=== PATIENT | male | born 1950 | race Caucasian/White ===

== ENCOUNTER → 2017-12-08 10:19 | Outpatient (CLI) | payer MEDICARE, MEDICAID, SELFPAY ==
[2017-12-08 12:21] LABS: OXY Internal Control LINE = VALID (VALID); Oxycodone Drug Screen Positive (<100 ng/mL)
[2017-12-08 12:32] LABS: Amphetamine Urine VISTA NEGATIVE (<1000 ng/mL); Barbiturate Urine VISTA NEGATIVE (< 200 ng/mL); Benzodiazepine Urine VISTA NEGATIVE (< 200 ng/mL); Cocaine Urine VISTA NEGATIVE (< 300 ng/mL); Ecstacy Urine VISTA NEGATIVE (< 500 ng/mL); Methadone Urine VISTA NEGATIVE (< 300 ng/mL); PCP Urine VISTA NEGATIVE (< 25 ng/mL); THC Urine VISTA POSITIVE (< 50 ng/mL); Vista UDS pH Range 5
== END ==
PROVIDERS: Family Provider Family Medicine; PCP Family Medicine; Visit Provider Family Medicine
DX: Z51.81 Encounter for therapeutic drug level monitoring (principal)
CPT/HCPCS: 80307; 80365; G0480

== ENCOUNTER → 2018-12-14 13:45 | Outpatient (CLI) | payer MEDICARE, MEDICAID, SELFPAY ==
[2018-05-08 13:51] VITALS: BMI 30.1
[2018-12-18 03:06] LABS: Lyme IgG P18 Ab Present (.); Lyme IgG P23 Ab Present (.); Lyme IgG P28 Ab Absent (.); Lyme IgG P30 Ab Absent (.); Lyme IgG P39 Ab Present (.); Lyme IgG P41 Ab Present (.); Lyme IgG P45 Ab Absent (.); Lyme IgG P58 Ab Present (.); Lyme IgG P66 Ab Present (.); Lyme IgG P93 Ab Absent (.); Lyme IgM P23 Ab Present (.); Lyme IgM P39 Ab Present (.); Lyme IgM P41 Ab Present (.)
[2018-12-18 13:08] LABS: Lyme IgG WB Interpretation Positive (.)
[2018-12-18 13:51] LABS: Lyme IgM WB Interpretation Positive (.)
== END ==
PROVIDERS: Family Provider Family Medicine; PCP Family Medicine; Visit Provider Family Medicine
DX: M25.50 Pain in unspecified joint (principal); G62.9 Polyneuropathy, unspecified
CPT/HCPCS: 36415; 86617

== ENCOUNTER → 2019-03-18 13:31 | Outpatient (CLI) | payer MEDICARE, MEDICAID, SELFPAY ==
[2018-05-08 13:51] VITALS: BMI 30.1
[2019-03-18 15:04] LABS: Absolute Lymphocyte Count 1.98 X10^3/uL (0.83-4.51); Absolute Neutrophil Count 9.8 X10^3/uL (2.0-7.7); Basophil# 0.04 X10^3/uL; Basophil% 0.3 % (0-1); Eosinophil# 0.18 X10^3/uL; Eosinophils% 1.4 % (0-5); Hematocrit 49.3 % (40-54); Hemoglobin 15.9 g/dL (13.0-16.5); Lymphocyte # 1.98 X10^3/ul (4.0); Lymphocyte % 15.1 % (19-41); Mean Corp Hgb Conc 32.3 g/dL (32-36); Mean Corpuscular Hgb 28.5 pg (27.0-32.0); Mean Corpuscular Volume 88.4 fL (80-94); Mean Platelet Vol. 11.9 fl (6.2-12.0); Monocyte# 1.06 X10^3/uL; Monocyte% 8.1 % (0-10); NRBC Flagged by Analyzer 0 % (0-5); Neutrophil # 9.79 X10^3/uL (2.7-7.7); Neutrophil % 74.6 % (47-70); Platelet Count 127 K/mm3 (150-450); RBC Distribution Width CV 13.8 % (11.6-14.6); RBC Distribution Width SD 44.8 fl (35.1-43.9); Red Blood Count 5.58 M/mm3 (4.6-6.2); White Blood Count 13.1 K/mm3 (4.4-11.0)
[2019-03-18 15:31] LABS: ALB/GLOB Ratio 0.9 RATIO (0.9-2.4); AST(SGOT) 16 U/L (15-37); Alanine Aminotransfer ALT/SGPT 22 U/L (16-61); Albumin, Serum 3.4 g/dL (3.2-5.0); Alkaline Phosphatase 109 U/L (45-117); Anion Gap 6 (5-15); BUN 13 mg/dL (7-18); BUN/Creat Ratio 13.6 RATIO (10-20); Calcium,Total 8.7 mg/dL (8.5-10.1); Chloride 105 mmol/L (98-107); Creatinine, Serum 0.96 mg/dL (0.70-1.30); EST Glomerular Filtration Rate 83 mL/min (>60); Est Glom Filt Rate - Afr Amer 101 mL/min (>60); Globulin 3.9 g/dL (2.2-4.2); Glucose 186 mg/dL (74-106); LDH 200 U/L (87-241); Potassium 4.1 mmol/L (3.5-5.1); Protein, Total 7.3 g/dL (6.4-8.2); Sodium Level 139 mmol/L (136-145)
[2019-03-20 20:07] LABS: Free Kappa Light Chains 37.5 mg/L (3.3-19.4); Free Lambda Light Chains 29.6 mg/L (5.7-26.3); Immunoglobulin A 384 mg/dL (61-437); Immunoglobulin G 1021 mg/dL (700-1600); Immunoglobulin M 81 mg/dL (20-172); PROEL- A/G Ratio 0.9 (0.7-1.7); PROEL- Albumin 3.1 g/dL (2.9-4.4); PROEL- Alpha-1 Globulin 0.3 g/dL (0.0-0.4); PROEL- Alpha-2 Globulin 0.9 g/dL (0.4-1.0); PROEL- Beta Globulin 1.2 g/dL (0.7-1.3); PROEL- Globulin, Total 3.4 g/dL (2.2-3.9); PROEL- TOTAL PROTEIN 6.5 g/dL (6.0-8.5)
== END ==
PROVIDERS: Family Provider Family Medicine; PCP Family Medicine; Visit Provider Internal Medicine Medical Oncology
DX: G89.4 Chronic pain syndrome (principal); D47.2 Monoclonal gammopathy; D72.9 Disorder of white blood cells, unspecified; Z51.81 Encounter for therapeutic drug level monitoring
CPT/HCPCS: 36415; 80053; 82784; 83615; 83883; 84165; 85025

== ENCOUNTER → 2019-09-23 15:30 | Outpatient (CLI) | payer MEDICARE, MEDICAID, SELFPAY ==
[2019-05-08 13:59] VITALS: BMI 29.4
[2019-09-23 17:41] LABS: Amphetamine Urine VISTA NEGATIVE (<1000 ng/mL); Barbiturate Urine VISTA NEGATIVE (< 200 ng/mL); Benzodiazepine Urine VISTA NEGATIVE (< 200 ng/mL); Cocaine Urine VISTA NEGATIVE (< 300 ng/mL); Ecstacy Urine VISTA NEGATIVE (< 500 ng/mL); Methadone Urine VISTA NEGATIVE (< 300 ng/mL); PCP Urine VISTA NEGATIVE (< 25 ng/mL); THC Urine VISTA POSITIVE (< 50 ng/mL); Vista UDS pH Range 6
[2019-09-23 17:56] LABS: OXY Internal Control LINE = VALID (VALID); Oxycodone Drug Screen Positive (<100 ng/mL)
== END ==
PROVIDERS: PCP Family Medicine; Visit Provider Family Medicine
DX: Z51.81 Encounter for therapeutic drug level monitoring (principal); F11.90 Opioid use, unspecified, uncomplicated
CPT/HCPCS: 80307; 80365; G0480

== ENCOUNTER → 2022-07-01 | Outpatient (CLI) | payer MEDICARE, MEDICAID, SELFPAY | END | disposition home or self-care (01) | LOC: BFHLAB 14:17 | PROVIDERS: PCP Family Medicine; Visit Provider Family Medicine | DX: E11.49 Type 2 diabetes mellitus with other diabetic neurological complication (principal) | CPT/HCPCS: 36415; 83036 ==

== ENCOUNTER → 2023-01-27 | Outpatient (CLI) | payer MEDICARE, MEDICAID, SELFPAY ==
[2023-01-27 12:42] LABS: Absolute Lymphocyte Count 2.97 X10^3/uL (0.83-4.51); Absolute Neutrophil Count 7.3 X10^3/uL (2.0-7.7); Basophil# 0.04 X10^3/uL; Basophil% 0.3 % (0-1); Eosinophil# 0.19 X10^3/uL; Eosinophils% 1.6 % (0-5); Hematocrit 50.1 % (40-54); Hemoglobin 15.9 g/dL (13.0-16.5); Lymphocyte # 2.97 X10^3/ul (0.83-4.51); Lymphocyte % 25.8 % (19-41); Mean Corp Hgb Conc 31.7 g/dL (32-36); Mean Corpuscular Hgb 29.1 pg (27.0-32.0); Mean Corpuscular Volume 91.6 fL (80-94); Monocyte# 0.97 X10^3/uL; Monocyte% 8.4 % (0-10); NRBC Flagged by Analyzer 0 % (0-5); Neutrophil # 7.31 X10^3/uL (2.7-7.7); Neutrophil % 63.6 % (47-70); Platelet Count 132 K/mm3 (150-450); RBC Distribution Width CV 13.9 % (11.6-14.6); RBC Distribution Width SD 46.9 fl (35.1-43.9); Red Blood Count 5.47 M/mm3 (4.6-6.2); White Blood Count 11.5 K/mm3 (4.4-11.0)
[2023-01-27 12:55] LABS: AST(SGOT) 12 U/L (15-37); Alanine Aminotransfer ALT/SGPT 21 U/L (16-61); Albumin, Serum 3.5 g/dL (3.2-5.0); Alkaline Phosphatase 65 U/L (45-117); Anion Gap 7 (5-15); BUN 20 mg/dL (7-18); BUN/Creat Ratio 24.2 RATIO (10-20); Calcium,Total 8.5 mg/dL (8.5-10.1); Chloride 108 mmol/L (98-107); Creatinine, Serum 0.82 mg/dL (0.70-1.30); EST Glomerular Filtration Rate 98 mL/min (>60); Est Glom Filt Rate - Afr Amer 118 mL/min (>60); Globulin 3.5 g/dL (2.2-4.2); Glucose 189 mg/dL (74-106); LDH 186 U/L (87-241); Potassium 4.2 mmol/L (3.5-5.1); Sodium Level 140 mmol/L (136-145)
[2023-01-27 12:58] LABS: Microalbumin,Random Urine 6.6 mg/L (NO RANGE EST.); Microalbumin:Creatinine Ratio 9.9 mg/g CRE (<30 mg/g CRE)
[2023-01-27 12:59] LABS: Amphetamine Urine VISTA NEGATIVE (<1000 ng/mL); Barbiturate Urine VISTA NEGATIVE (< 200 ng/mL); Benzodiazepine Urine VISTA NEGATIVE (< 200 ng/mL); Cocaine Urine VISTA NEGATIVE (< 300 ng/mL); Ecstacy Urine VISTA NEGATIVE (< 500 ng/mL); Methadone Urine VISTA NEGATIVE (< 300 ng/mL); PCP Urine VISTA NEGATIVE (< 25 ng/mL); THC Urine VISTA POSITIVE (< 50 ng/mL); Vista UDS pH Range 5
[2023-01-27 13:09] LABS: OXY Internal Control LINE = VALID (VALID); Oxycodone Drug Screen Positive (<100 ng/mL)
[2023-01-27 14:09] LABS: Hemoglobin A1c 6.3 % (3.8-5.6)
[2023-01-30 14:08] LABS: Albumin 3.7 g/dL (2.9-4.4); Alpha-1-Globulins 0.2 g/dL (0.0-0.4); Alpha-2-Globulins 0.8 g/dL (0.4-1.0); Free Kappa Light Chains 33.3 mg/L (3.3-19.4); Free Lambda Light Chains 28.5 mg/L (5.7-26.3); Gamma Globulin 0.8 g/dL (0.4-1.8); Immunoglobulin A 289 mg/dL (61-437); Immunoglobulin G 892 mg/dL (603-1613); Immunoglobulin M 65 mg/dL (15-143); PROEL- TOTAL PROTEIN 6.5 g/dL (6.0-8.5)
== END | disposition home or self-care (01) ==
LOC: BFHLAB 09:18
PROVIDERS: PCP Family Medicine; Visit Provider Family Medicine
DX: E11.49 Type 2 diabetes mellitus with other diabetic neurological complication (principal); I10 Essential (primary) hypertension; E78.5 Hyperlipidemia, unspecified; D47.2 Monoclonal gammopathy; Z79.899 Other long term (current) drug therapy
CPT/HCPCS: 36415; 80053; 80307; 80365; 82043; 82570; 82784; 83036; 83615; 83883; 84165; 85025; 86334; G0480

== ENCOUNTER → 2023-04-28 | Outpatient (CLI) | payer MEDICARE, MEDICAID, SELFPAY ==
--- OUTSIDE RECORDS SUMMARY | 2023-04-28 16:37 | XMS RPT_ITS | CCD ---
Author Name Unknown Address [address] [place] [address] Organization [facility] Care Team Providers Care Medical Office Secretary Name Role Phone MD RICKI DIAZ Attending Provider [phone] MD RICKI DIAZ Referring Provider HEATHER HARRINGTON Primary Care Provider [phone] MD PENNY HERNANDEZ Emergency Provider DO CANDICE BERNARD Emergency Provider Unavailable UNKNOWN, PROVIDER Attending Unavailable UNKNOWN, PROVIDER Referring Unavailable HEATHER HARRINGTON Primary Care Unavailable UNKNOWN, PROVIDER Attending Unavailable HEATHER HARRINGTON Primary Care Unavailable UNKNOWN, PROVIDER Attending Unavailable UNKNOWN, PROVIDER Referring Unavailable MITCHELL YUEN Attending Unavailable HEATHER HARRINGTON Primary Care Unavailable SACHIN BHAT Attending Unavaila SACHIN Gray Referring Unavaila ble HEATHER HARRINGTON. Primary Care Unavailable CANDICE BERNARD Attending Unavailable HEATHER HARRINGTON Primary Care Unavailable PENNY HERNANDEZ Attending Unavailable ADAN SANCHEZ Attending Unavailable ADAN SANCHEZ Referring Unavailable MITCHELL YUEN Attending Unavailable HEATHER HARRINGTON Primary Care Unavailable SALBADOR BIRCH Attending Unavailable JOVANI TURNER MD Primary Care Unavailable JOVANI TURNER MD Admitting Unavailable HEATHER HARRINGTON Consulting Unavailable JOVANI TURNER MD Attending Unavailable PROVIDER, UNKNOWN Consulting Unavailable JOVANI TURNER MD Admitting Unavailable HEATHER HARRINGTON Consulting Unavailable JOVANI TURNER MD Attending Unavailable JOVANI TURNER MD Primary Care Unavailable PROVIDER, UNKNOWN Consulting Unavailable Medications Current Medications Medication Drug Class(es) Dates Sig (Normalized) Sig (Original) amLODIPine 5 mg oral tablet (2 sources) Dihydropyridine Calcium Channel Mai Start: 2 take 1 tablet by mouth once daily Amlodipine Besylate (Norvasc) 5 MG Tablet Active 5 MG PO Daily September 28, 2021 12:00am carvedilol 25 mg oral tablet (2 sources) alpha-Adrenergic Mai, beta-Adrenergic Mai Start: 2 take 1 tablet by mouth twice daily Carvedilol (Coreg) 25 MG Tablet Active 25 MG PO Two Times A Day September 28, 2021 12:00am cholecalciferol 0.025 mg oral tablet (2 sources) Vitamin D Start: 2 take 1 tablet by mouth once daily Cholecalciferol (Vitamin D3) (Vitamin D3 1000 Unit Tablet) 1,000 UNIT Tablet Active 1000 UNIT PO Daily September 28, 2021 12:00am 24 hr cyclobenzaprine hydrochloride 15 mg extended release oral capsule (2 sources) Muscle Relaxant Start: 2 take 1 capsule by mouth at bedtime Cyclobenzaprine Hcl (Cyclobenzaprine Hcl Er) 15 MG Cap.Er.24h Active 25 MG PO Bedtime September 28, 2021 12:00am empagliflozin 25 mg oral tablet (2 sources) Sodium-Glucose Cotransporter 2 Inhibitor Start: 2 take 1 tablet by mouth once daily Empagliflozin (Jardiance) 25 MG Tablet Active 25 MG PO Daily September 28, 2021 12:00am glipiZIDE er 5 mg 24 hr extended release oral tablet (2 sources) Sulfonylurea Start: 2 take 1 tablet by mouth twice daily Glipizide (Glucotrol Xl 5 Mg Tablet) 5 MG Tablet Active 5 MG PO Two Times A Day September 28, 2021 12:00am lisinopril 10 mg oral tablet (2 sources) Angiotensin Converting Enzyme Inhibitor Start: 2 take 1 tablet by mouth once daily Lisinopril (Zestril) 10 MG Tablet Active 10 MG PO Daily September 28, 2021 12:00am osmotic 24 hr metFORMIN hydrochloride 1000 mg extended release oral tablet (2 sources) Biguanide Start: 2 take 1 tablet by mouth twice daily Metformin Hcl (Metformin Er Osmotic) 1,000 MG Tab.Er.24 Active 1000 MG PO Two Times A Day September 28, 2021 12:00am morphine sulfate 15 mg extended release oral tablet (2 sources) Opioid Agonist Start: 2 take 1 tablet by mouth at bedtime Morphine Sulfate (Ms Contin 15 Mg Tablet) 15 MG Tablet Active 15 MG PO Bedtime September 28, 2021 12:00am Multivitamin (Multiple Vitamins) 1 EACH Tablet (2 sources) Start: 2 take 1 tablet by mouth once daily Multivitamin (Multiple Vitamins) 1 EACH Tablet Active 1 EACH PO Daily September 28, 2021 12:00am nitrofurantoin, macrocrystals 25 mg / nitrofurantoin, monohydrate 75 mg oral capsule (2 sources) Nitrofuran Antibacterial Start: 2 take 1 capsule by mouth twice daily Nitrofurantoin Monohyd/M-Cryst (Macrobid 100 Mg Capsule) 100 MG Capsule Active 100 MG PO Two Times A Day 14 October 06, 2021 12:00am oxyCODONE hydrochloride 15 mg oral tablet (2 sources) Opioid Agonist Start: 2 take 1 tablet by mouth every six hours Oxycodone Hcl (Roxicodone) 15 MG Tablet Active 15 MG PO Q6H September 28, 2021 12:00am saccharomyces boulardii 250 mg oral capsule (2 sources) Start: 2 take 1 capsule by mouth once daily Saccharomyces Boulardii (Daily Probiotic) 250 MG Capsule Active 250 MG PO Daily September 28, 2021 12:00am sulfamethoxazole 800 mg / trimethoprim 160 mg oral tablet (1 source) Dihydrofolate Reductase Inhibitor Antibacterial, Sulfonamide Antimicrobial Start: 2 take 1 tablet by mouth twice daily Sulfamethoxazole/Tr imethoprim (Bactrim Ds Tablet) 1 EACH Tablet Active 1 EACH PO Two Times A Day 14 October 16, 2021 12:00am tamsulosin hydrochloride 0.4 mg oral capsule (2 sources) alpha-Adrenergic Mai Start: 2 take 1 capsule by mouth once daily Tamsulosin Hcl (Flomax) 0.4 MG Capsule Active 0.4 MG PO Daily September 28, 2021 12:00am Problems Problem Classification Problem Date Documented Date Episodic/Chronic Coronary atherosclerosis and other heart disease (3 sources) Atherosclerotic heart disease of nondalton coronary artery without angina pectoris; Translations: [Atherosclerotic heart disease of nondalton coronary artery without angina pectoris] Onset: 04-17-2023 Chronic Diabetes mellitus without complication (1 source) Hyperglycemia; Translations: [Hyperglycemia, unspecified] 10-16-2021 Episodic Essential hypertension (1 source) Essential (primary) hypertension; Translations: [Essential (primary) hypertension] Onset: 04-17-2023 Chronic Genitourinary symptoms and ill-defined conditions (3 sources) Retention of urine; Translations: [Retention of urine, unspecified] 10-06-2021 Episodic Hyperplasia of prostate (2 sources) Large prostate ; Translations: [Benign prostatic hyperplasia without lower urinary tract symptoms] 10-06-2021 Chronic Urinary tract infections (2 sources) Cystitis; Translations: [Cystitis, unspecified without hematuria] 10-06-2021 Episodic Results Test Name Value Interpretation Reference Range Facil ity Vital Signs Date Time Vital Sign Value Performing Clinician Faci lity 10-16-2021 21:56-0400 Diastolic blood pressure 56 mm[Hg] MD RICKI DIAZ Work Phone: [facility] 10-16-2021 21:56-0400 Heart rate 62 /min MD RICKI DIAZ Work Phone: [facility] 10-16-2021 21:56-0400 Respiratory rate 18 /min MD RICKI DIAZ Work Phone: [facility] 10-16-2021 21:56-0400 SaO2% (BldA) [Mass fraction] 98 % MD RICKI DIAZ Work Phone: [facility] 10-16-2021 21:56-0400 Systolic blood pressure 172 mm[Hg] MD RICKI DIAZ Work Phone: [facility] 10-16-2021 19:50-0400 Body height 182.88 cm MD RICKI DIAZ Work Phone: [facility] 10-16-2021 19:50-0400 Body temperature 98 [degF] MD RICKI DIAZ Work Phone: [facility] 10-16-2021 19:50-0400 Body weight 93.9 kg MD RICKI DIAZ Work Phone: [facility] 10-06-2021 12:32-0400 Diastolic blood pressure 68 mm[Hg] MD RICKI DIAZ Work Phone: [facility] 10-06-2021 12:32-0400 Heart rate 88 /min MD RICKI DIAZ Work Phone: [facility] 10-06-2021 12:32-0400 Respiratory rate 16 /min MD RICKI DIAZ Work Phone: [facility] 10-06-2021 12:32-0400 SaO2% (BldA) [Mass fraction] 97 % MD RICKI DIAZ Work Phone: [facility] 10-06-2021 12:32-0400 Systolic blood pressure 167 mm[Hg] MD RICKI DIAZ Work Phone: [facility] 10-06-2021 09:08-0400 Body temperature 96.8 [degF] MD RICKI DIAZ Work Phone: [facility] 10-06-2021 09:08-0400 Body weight 93.9 kg MD RICKI DIAZ Work Phone: [facility] 10-05-2021 13:20-0400 Body temperature 97.6 [degF] MD RICKI DIAZ Work Phone: [facility] 10-05-2021 13:20-0400 Diastolic blood pressure 70 mm[Hg] MD RICKI DIAZ Work Phone: [facility] 10-05-2021 13:20-0400 Heart rate 65 /min MD RICKI DIAZ Work Phone: [facility] 10-05-2021 13:20-0400 Respiratory rate 18 /min MD RICKI DIAZ Work Phone: [facility] 10-05-2021 13:20-0400 SaO2% (BldA) [Mass fraction] 978 % MD RICKI DIAZ Work Phone: [facility] 10-05-2021 13:20-0400 Systolic blood pressure 145 mm[Hg] MD RICKI DIAZ Work Phone: [facility] 09-28-2021 14:44-0400 Body height 182.88 cm MD RICKI DIAZ Work Phone: [facility] 09-28-2021 14:44-0400 Body weight 97.07 kg MD RICKI DIAZ Work Phone: [facility] Encounters Encounter Date Encounter Type Care Provider Facility Start: 04-17-2023 End: 04-17-2023 ambulatory JOVANI PERSAUD [facility] Start: 10-03-2022 End: 10-03-2022 ambulatory JOVANI PERSAUD TUR[facility] Start: 05-12-2022 End: 05-12-2022 ambulatory ADAN SANCHEZ Facility: Start: 04-22-2022 End: 04-22-2022 ambulatory MITCHELL YUEN Facility: Start: 03-23-2022 End: 03-23-2022 ambulatory MITCHELL YUEN Facility: Start: 03-22-2022 End: 03-22-2022 ambulatory SALBADOR BIRCH Facility: Start: 02-18-2022 End: 02-18-2022 ambulatory PROVIDER UNKNOWN Facility: Start: 10-16-2021 End: 10-16-2021 Emergency department patient visit HEATHER HARRINGTON Facility: Start: 10-16-2021 End: 10-16-2021 Emergency department patient visit MD RICKI DIAZ Work Phone: [facility] Start: 10-06-2021 End: 10-06-2021 Emergency department patient visit HEATHER HARRINGTON Facility: Start: 10-06-2021 End: 10-06-2021 Emergency department patient visit MD RICKI DIAZ Work Phone: [facility] Start: 10-05-2021 End: 10-05-2021 ambulatory HEATHER HARRINGTON Facility: Start: 10-05-2021 End: 10-05-2021 Admission to same day surgery center MD RICKI DIAZ Work Phone: [facility]SAME DAY SURGERY Start: 09-28-2021 End: 09-28-2021 ambulatory HEATHER HARRINGTON Facility: Start: 09-28-2021 End: 09-28-2021 Patient encounter procedure MD RICKI DIAZ Work Phone: [facility]CARDIOLOGY Start: 07-19-2021 End: 07-19-2021 ambulatory SACHIN TAN [place] Facility: Procedures Date Procedure Procedure Detail Performing Clinician Start: 10-06-2021 CT of abdomen and pelvis without contrast MD RICKI DIAZ Work Phone: Start: 10-05-2021 Extraction of cataract MD RICKI DIAZ Work Phone: Start: 09-28-2021 Electrocardiographic procedure MD RICKI DIAZ Work Phone: Plan of Treatment Date Care Activity Detail Author Start: 10-16-2021 Urinalysis with refl ex to microscopy and culture [facility] Work Phone: Start: 10-06-2021 [facility] Work Phone: Bilirubin.total [Pre sence] in Urine [facility] Work Phone: Glucose [Presence] in Urine [facility] Work Phone: Ketones [Presence] in Urine [facility] Work Phone: Patient Education [facility] Work Phone: Patient referral [facility] Work Phone: [facility] Work Phone: Specific gravity of Urine [facility] Work Phone: Urinalysis, blood, qualitative [facility] Work Phone: Urinalysis, protein, qualitative [facility] Work Phone: Urine dipstick for l eukocyte esterase [facility] Work Phone[facility]: Urine examination [facility] Work Phone: Urobilinogen [Presence] in Urine [facility] Work Phone: Payers Date Payer Category Payer Medicaid [id number] 2016 Medicare [id number] 1950 Unknown [id number] 2.16.8 [id number] 1950 Unknown [id number] 2.16.8 [id number] Medicare [id number] Unknown [id number] 2.16.8 [id number] Unknown [id number] 2.16.8 [id number] Unknown [id number] 2.16.8 [id number] Unknown [id number] 2.16.8 [id number] Unknown [id number] 2.16.8 [id number] Unknown [id number] 2.16.8 [id number] Unknown [id number] 2.16.8 [id number] Unknown [id number] 2.16.8 [id number] Unknown [id number] 2.16.8 [id number] Unknown [id number] 2.16.8 [id number] Social History Date Type Detail Facility Start: 10-06-2021 End: 10-16-2021 Tobacco smoking status NHIS Never smoked tobacco (finding) [facility] Start: 09-28-2021 Never [facility] Start: 10-06-2021 No [facility] Start: 1950 Sex Assigned At Male C [facility] Medical Equipment Procedure Code Equipment Code Equipment Origin al Text Equipment Identifier Dates Posterior-chambe r intraocular lens, pseudophakic [id number] [facility] Start: 10-05-2021 Functional Status Date Assessment Result Facility 10-05-2021 Functional status Independent;St andby Assistance [facility] Work Phone: Mental Status Date Assessment Result Facility 10-16-2021 Cognitive function Level Of Cons ciousness Awake;Alert;Appropriate;Follow s Commands [facility] Work Phone: 10-16-2021 Cognitive function Arousable To Name [facility] Work Phone: 10-06-2021 Cognitive function Level Of Cons ciousness Awake;Alert;Appropriate;Follow s Commands [facility] Work Phone: 10-05-2021 Cognitive function Level Of Cons ciousness Awake;Alert;Appropriate;Follow s Commands [facility] Work Phone: Discharge summary 10-16-2021 Note Date & Type Note Facility [facility] Work Phone: Discharge summary note 10-12-2021 Note Date & Type Note Facility 10-12-[address] [address] HEALTH INFORMATION MANAGEMENT DISCHARGE SUMMARY : [id number] Signed Patient: LINDA MA Acct:[id number] MRUN: [id number] : 1950 Sex: M Loc: SDS ADM Date: Room/Bed: DISC Date: 10/05/21 _ DATE: 10/05/2021 HOSPITAL COURSE: The patient entered the hospital on 10/05 with a dense cataract of the left eye. He underwent a phacoemulsification procedure, placement of posterior chamber intraocular lens, requiring the use of Malyugin ring. 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 The procedure was carried out without complications. Discharged in good condition. Only homegoing instructions were to take a Diamox Sequels that evening. He was also instructed to resume his regular and p.r.n. medications. He was also instructed to leave the patch and shield in place. 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 He was discharged in good condition and will be seen in office in 24 hours for followup. TM/VIS TID: [id number] Dictated By: RICKI DIAZ MD Signed By: RICKI DIAZ MD < > Co Signed By: Dictated Date/Time: 10/05/21 1306 Transcribed Date/Time: 10/05/[address]: Signed Date/Time: 10/12/21 0841 Co Signed Date/Time: CC: HEATHER HARRINGTON [facility] Clinical Note 10-12-2021 Note Date & Type Note Facility 10-12-2021 [place] [address] HEALTH INFORMATION MANAGEMENT OPERATIVE REPORT : Signed Patient: LINDA MA Acct:[id number] MRUN: [id number] : 1950 Sex: M Loc: SDS ADM Date: Room/Bed: DISC Date: 10/05/21 ___ DATE: 10/05/2021 PREOPERATIVE DIAGNOSIS: Cataract, left eye. PREOPERATIVE DIAGNOSIS: Cataract, left eye. OPERATION: Phacoemulsification, left eye, placement of posterior chamber intraocular lens, requiring a Malyugin ring. ANESTHESIA: MAC. BILLET SHEARER: None. COMPLICATIONS: None. LOSS OF BLOOD: None. SPECIMENS: None. INDICATIONS FOR PROCEDURE: This patient has a dense nuclear sclerotic cataract, left eye. His best visual acuity is 20/200. The patient is a diabetic, but demonstrates no diabetic cystoid macular edema. There is no other retinopathy. He is having difficulty with reading. I expect significant improvement following the surgery. 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 OPERATIVE REPORT: The patient was brought to the operating room and identified as the patient. Having cataract surgery, left eye. Topical tetracaine drops placed in the left eye and the patient was prepped and draped in the usual sterile fashion for left eye procedure. Timeout performed. Lid speculum was placed to hold the lids back. Attention was focused on the superior temporal quadrant. Cautery was used on the conjunctiva just posterior to the limbus. A small opening was made in the conjunctiva with Carmen scissors. Following this, a blunt 19 gauge sub-Tenon's cannula was introduced and anesthetic solution was injected, 0.25% Marcaine mixed half and half with 2% Xylocaine. After adequate anesthesia, a small fornix-based conjunctival flap was made superiorly. Hemostasis was achieved with bipolar cautery. Groove incision made with 6900 blade and beveled clear cornea. Anterior chambers entered with a 2.4 mm keratome. Viscoat was instilled. Counterpuncture incision made with sideport blade. Following this, a Malyugin ring 7.0 version 2 was introduced in the eye and the inferior spool was captured. After this, the three other spools were captured on the iris using a Kuglen hook. 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 Bent 25-gauge needle was then used to fashion the first part of an anterior capsular flap. Circular capsulorrhexis then completed. The nucleus was loosened from its cortical attachments using hydrodissection. The phacoemulsification tip was then placed in the eye and nucleus emulsified in 4-quadrant crack technique. Irrigation aspiration function was used to remove the cortex. Posterior capsule was polished. Provisc was used to inflate the capsular bag and anterior chamber. Foldable AcrySof lens placed in capsular bag without difficulty. Following this, the Kuglen hook was introduced into the eye and the inferior spool was released from the iris. The Malyugin ring was rotated in counterclockwise fashion and then the food cooking machine operator was placed in the eye and a Malyugin ring was removed. Irrigation aspiration function was used to remove all the Provisc and Viscoat. Balanced salt solution was injected through the sideport incision. Wound was checked for tightness, found to be tight. Kefzol, Solu-Medrol and tobramycin injected subconjunctivally inferiorly. Conjunctival flap closed with bipolar cautery. Lid speculum was removed. A drop of timolol, dorzolamide and erythromycin ointment placed in the eye. Patch and shield placed over the eye and the patient went to the holding area in good condition. He tolerated the procedure well. No complications. 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 He also did not dilate maximally with maximal dilating drops. As stated above, the procedure was carried out without complication and went to the holding area in good condition. TM/PRA TID: [id number] Dictated By: RICKI DIAZ MD Signed By: RICKI DIAZ MD < > Co Signed By: Dictated Date/Time: 10/05/21 1305 Transcribed Date/Time: 10/05/[address]: Signed Date/Time: 10/12/21 0841 Co Signed Date/Time: CC: RICKI DIAZ MD; HEATHER HARRINGTON [facility] Evaluation note Note Date & Type Note Facility Evaluation note No assessment information availa [facility] Work Phone: Summary Purpose Family History No Family History Records FoundNo Family History Records FoundNo Family History Records FoundNo Family History Records Found Advance Directives No Advanced Directives Records FoundNo Advanced Directives Records FoundNo Advanced Directives Records FoundNo Advanced Directives Records Found Chief Complaint and Reason for Visit Chief Complaint PRE OP CATARACT LEFT EYE UNABLE TO URINATE Chief Complaint PRE OP CATARACT LEFT EYE UNABLE TO URINATE UTI MAYBE Additional Source Comments (unrecognized sect ion and content) No Status Records FoundNo Status Records FoundNo Status Records FoundNo Status Records Found INFORMATION SOURCE (unrecogn ized section and content) DATE CREATED AUTHOR AUTHOR'S ORGANIZ ATION 10/09/2021 [facility] DATE CREATED AUTHOR AUTHOR'S ORGANIZ ATION 06/16/2022 [facility] DATE CREATED AUTHOR AUTHOR'S ORGANIZ ATION 04/25/2023 [facility] Care Teams (unrecognized sec tion and content) Team Status: Active Member Role Status Dates RICKI DIAZ MD Attending Provider Active art: September 28, 2021 RICKI DIAZ MD Referring Provider Active art: September 28, 2021 HEATHER HARRINGTON Primary Care Provider Active St art: September 28, 2021 PENNY HERNANDEZ MD Emergency Provider Active Start: October 06, 2021 CANDICE BERNARD DO Emergency Provider Active Sta rt: October 16, 2021 MARIBELL RIVERA next of kin Active Goals (unrecognized section and content) Goals may be documented in a n alternate sectionGoals may be documented in an alternate section FOR RECORDS PERTAINING TO PATIENTS WHO ARE OR HAVE BEEN ENROLLED IN A CHEMICAL DEPENDENCY/SUBSTANCEABUSE PROGRAM, SOME INFORMATION MAY BE OMITTED. This clinical summary was aggregated from multiple sources. Caution should be exercised in using it in the provision of clinical care. This summary normalizes information from multiple sources, and as a consequence, information in this document may materially change the coding, format and clinical context of patient data. In addition, data may be omitted in some cases. CLINICAL DECISIONS SHOULD BE BASED ON THE PRIMARY CLINICAL RECORDS. [facility] [email or web address] [facility]. provides no warranty or guarantee of the accuracy or completeness of information in this document.
[2023-05-02 17:07] LABS: Lyme IgG P18 Ab Present (.); Lyme IgG P23 Ab Present (.); Lyme IgG P28 Ab Absent (.); Lyme IgG P30 Ab Present (.); Lyme IgG P39 Ab Present (.); Lyme IgG P41 Ab Present (.); Lyme IgG P45 Ab Absent (.); Lyme IgG P58 Ab Present (.); Lyme IgG P66 Ab Present (.); Lyme IgG P93 Ab Absent (.); Lyme IgG WB Interpretation Positive (.); Lyme IgM P23 Ab Present (.); Lyme IgM P39 Ab Absent (.); Lyme IgM P41 Ab Present (.); Lyme IgM WB Interpretation Positive (.)
== END | disposition home or self-care (01) ==
LOC: BFHLAB 14:44
PROVIDERS: PCP Family Medicine; Visit Provider Family Medicine
DX: R50.9 Fever, unspecified (principal)
CPT/HCPCS: 36415; 86617

== ENCOUNTER → 2023-11-07 | Outpatient (CLI) | payer MEDICARE, MEDICAID, SELFPAY ==
[2023-11-07 18:26] LABS: AST(SGOT) 14 U/L (15-37); Alanine Aminotransfer ALT/SGPT 21 U/L (16-61); Albumin, Serum 3.6 g/dL (3.2-5.0); Alkaline Phosphatase 66 U/L (45-117); Anion Gap 7 (5-15); BUN 19 mg/dL (7-18); BUN/Creat Ratio 20.6 RATIO (10-20); Calcium,Total 9.3 mg/dL (8.5-10.1); Chloride 106 mmol/L (98-107); Creatinine, Serum 0.92 mg/dL (0.70-1.30); EST Glomerular Filtration Rate 86 mL/min (>60); Est Glom Filt Rate - Afr Amer 104 mL/min (>60); Globulin 3.7 g/dL (2.2-4.2); Glucose 147 mg/dL (74-106); Potassium 4.6 mmol/L (3.5-5.1); Protein, Total 7.3 g/dL (6.4-8.2); Sodium Level 138 mmol/L (136-145)
== END | disposition home or self-care (01) ==
LOC: BFHLAB 16:08
PROVIDERS: PCP Family Medicine
DX: I25.10 Atherosclerotic heart disease of native coronary artery without angina pectoris (principal); I42.9 Cardiomyopathy, unspecified; Z90.5 Acquired absence of kidney; E78.2 Mixed hyperlipidemia; I10 Essential (primary) hypertension
CPT/HCPCS: 36415; 80053

== ENCOUNTER → 2024-01-30 | Outpatient (CLI) | payer MEDICARE, MEDICAID, SELFPAY ==
[2024-01-30 17:38] LABS: Absolute Lymphocyte Count 3.04 X10^3/uL (0.83-4.51); Basophil# 0.05 X10^3/uL; Basophil% 0.5 % (0-1); Eosinophil# 0.18 X10^3/uL; Eosinophils% 1.7 % (0-5); Hematocrit 48.1 % (40-54); Hemoglobin 15.3 g/dL (13.0-16.5); Lymphocyte # 3.04 X10^3/ul (0.83-4.51); Lymphocyte % 29.4 % (19-41); Mean Corp Hgb Conc 31.8 g/dL (32-36); Mean Corpuscular Hgb 29.1 pg (27.0-32.0); Mean Corpuscular Volume 91.4 fL (80-94); Mean Platelet Vol. 13.3 fl (6.2-12.0); Monocyte# 1.07 X10^3/uL; Monocyte% 10.3 % (0-10); NRBC Flagged by Analyzer 0 % (0-5); Neutrophil # 5.97 X10^3/uL (2.7-7.7); Neutrophil % 57.8 % (47-70); POSITIVE COUNT YES; Platelet Count 98 K/mm3 (150-450); RBC Distribution Width CV 13.7 % (11.6-14.6); RBC Distribution Width SD 46.5 fl (35.1-43.9); Red Blood Count 5.26 M/mm3 (4.6-6.2); White Blood Count 10.3 K/mm3 (4.4-11.0)
[2024-01-30 17:48] LABS: Differential Indicated SCAN CRITERIA MET
[2024-01-30 17:55] LABS: LDH 184 U/L (87-241); PSA,Total - Annual Screen 3.51 ng/mL (0.00-4.00)
[2024-01-30 18:24] LABS: Amphetamine Urine VISTA NEGATIVE (<1000 ng/mL); Barbiturate Urine VISTA NEGATIVE (< 200 ng/mL); Benzodiazepine Urine VISTA NEGATIVE (< 200 ng/mL); Cocaine Urine VISTA NEGATIVE (< 300 ng/mL); Ecstacy Urine VISTA NEGATIVE (< 500 ng/mL); Methadone Urine VISTA NEGATIVE (< 300 ng/mL); PCP Urine VISTA NEGATIVE (< 25 ng/mL); THC Urine VISTA POSITIVE (< 50 ng/mL); Vista UDS pH Range 4
[2024-01-30 18:27] LABS: Microalbumin,Random Urine 5.5 mg/L (NO RANGE EST.); Microalbumin:Creatinine Ratio 7.4 mg/g CRE (<30 mg/g CRE)
[2024-01-30 18:48] LABS: Hemoglobin A1c 6.5 % (3.8-5.6)
[2024-01-30 19:09] LABS: Platelet Estimate MOD (ADEQ)
[2024-01-30 19:10] LABS: Red Cell Morphology NORM C+C NORMAL (NORM C&C)
[2024-02-02 16:10] LABS: Free Kappa Light Chains 35.5 mg/L (3.3-19.4); Free Lambda Light Chains 30.5 mg/L (5.7-26.3); Immunoglobulin A 305 mg/dL (61-437); Immunoglobulin G 982 mg/dL (603-1613); Immunoglobulin M 60 mg/dL (15-143)
== END | disposition home or self-care (01) ==
LOC: BFHLAB 13:57
PROVIDERS: PCP Family Medicine; Referring Provider Family Medicine; Visit Provider Family Medicine
DX: E11.49 Type 2 diabetes mellitus with other diabetic neurological complication (principal); D47.2 Monoclonal gammopathy; Z12.5 Encounter for screening for malignant neoplasm of prostate; Z79.899 Other long term (current) drug therapy
CPT/HCPCS: 36415; 80307; 82043; 82570; 82784; 83036; 83615; 83883; 84153; 85025; 86334; G0103

== ENCOUNTER → 2024-10-14 | Outpatient (CLI) | payer MEDICARE, MEDICAID, SELFPAY ==
[2024-10-14 15:31] LABS: Hematocrit 49.8 % (40-54); Hemoglobin 16.5 g/dL (13.0-16.5); Immature Granulocytes Count 0.050 X10^3/uL (0.0-0.0); Mean Corp Hgb Conc 33.1 g/dL (32-36); Mean Corpuscular Volume 89.9 fL (80-94); Mean Platelet Vol. 13.1 fl (6.2-12.0); NRBC Flagged by Analyzer 0 % (0-5); POSITIVE COUNT YES; Platelet Count 93 K/mm3 (150-450); RBC Distribution Width CV 13.4 % (11.6-14.6); RBC Distribution Width SD 44.3 fl (35.1-43.9); Red Blood Count 5.54 M/mm3 (4.6-6.2); White Blood Count 11.6 K/mm3 (4.4-11.0)
[2024-10-14 16:17] LABS: Barbiturate Urine NEGATIVE (< 200 ng/mL); Benzodiazepine Urine NEGATIVE (< 200 ng/mL); PCP Urine NEGATIVE (< 25 ng/mL); THC Urine PRESUMPTIVE POSITIVE (< 50 ng/mL)
[2024-10-14 16:26] LABS: AST(SGOT) 15 U/L (<=37); Alanine Aminotransfer ALT/SGPT 12 U/L (<=46); Albumin, Serum 4.3 g/dL (3.4-4.8); Alkaline Phosphatase 72 U/L (40-129); Anion Gap 14 (5-15); BUN 17 mg/dL (4-19); BUN/Creat Ratio 18.9 RATIO (10-20); Calcium,Total 9.1 mg/dL (7.6-11.0); Carbon Dioxide 20.5 mmol/L (21.0-32.0); Chloride 103 mmol/L (98-108); Ferritin 139 ng/mL (37-417); Globulin 2.9 g/dL (2.2-4.2); Glucose 106 mg/dL (70-99); Iron 86 ug/dL (65-175); LDH 168 U/L (87-241); Potassium 4.5 mmol/L (3.3-5.1); Vitamin B12 400 pg/mL (180-914); Vitamin D,25 Hydroxy 72.9 ng/mL (30-100)
[2024-10-14 16:29] LABS: Creatinine, Urine (random) 118.00 mg/dL (39.00-259.00); Microalbumin,Random Urine < 12.0 mg/L (<20 mg/L)
[2024-10-14 17:30] LABS: Differential Indicated SCAN CRITERIA MET
== END | disposition home or self-care (01) ==
LOC: BFHLAB 13:23
PROVIDERS: PCP Family Medicine; Visit Provider Family Medicine
DX: I10 Essential (primary) hypertension (principal); E11.49 Type 2 diabetes mellitus with other diabetic neurological complication; E55.9 Vitamin D deficiency, unspecified; E78.5 Hyperlipidemia, unspecified; D47.2 Monoclonal gammopathy; M13.0 Polyarthritis, unspecified; R53.83 Other fatigue; Z79.899 Other long term (current) drug therapy
CPT/HCPCS: 36415; 80053; 80307; 82043; 82306; 82570; 82607; 82728; 82784; 83540; 83615; 83883; 84439; 84443; 85025; 86334; 86617